=== PATIENT | female | born 1970 ===

== ENCOUNTER 2025-03-24 21:39 | Observation (INO) | payer MEDICAID, SELFPAY ==
--- NOTE | 2025-03-24 | ECG_ITS ---
Test Reason : TACHY Blood Pressure : */* mmHG Vent. Rate : 93 BPM Atrial Rate : 93 BPM P-R Int : 144 ms QRS Dur : 112 ms QT Int : 358 ms P-R-T Axes : 48 -29 76 degrees QTcB Int : 445 ms Normal sinus rhythm with sinus arrhythmia Moderate voltage criteria for LVH, may be normal variant ( R in aVL , Josue product ) Septal infarct , age undetermined Abnormal ECG No previous ECGs available Referred By: Generic ED Physician Electronically Signed By: YADIRA LIVINGSTON
--- NOTE | ~2025-03-24 | CT_ITS ---
CLINICAL HISTORY: vomiting, eval for SBO CT abdomen and pelvis with contrast Comparison: None provided Findings: Minor atelectasis at the lung bases. Small hiatal hernia. Heart size is approaching the upper limits in size. Gallbladder absent. Abdominal solid organs are otherwise unremarkable. No evidence of bowel obstruction. Moderate stool. Uterus and ovaries unremarkable. Normal appendix. Distal colonic diverticulosis without diverticulitis. Thoracolumbar posterior stabilization hardware. The left Forte pam is fractured at the T11 vertebral body level. Old left L2 and L3 fractures of the transverse processes. Osteopenia. No acute fracture. IMPRESSION: 1. No evidence of bowel obstruction. 2. Left Forte pam at T11 vertebral body level is fractured. Chronicity uncertain. 3. Additional nonacute findings as above. This document has been electronically signed by: Sumi Butcher MD on 03/25/2025 02:15:09
--- NOTE | ~2025-03-24 | XR_ITS ---
CLINICAL HISTORY: abdominal pain Radiographs of the abdomen 2 views with 1 view of the chest Comparison: CT/SR - CT ABDOMEN PELVIS W IV CON - 03/25/25 01:18 EST Findings: 4 films total. No abnormal bowel dilatation. Moderate amount of retained stool in the colon. No free air. No radiopaque foreign body. No radiopaque renal or proximal ureteral calculus. Several pelvic phleboliths. No consolidation,pleural effusion or pneumothorax. Normal heart size. No acute osseous abnormality is detected. Thoracolumbar Forte rods with discontinuity of the left-sided pam at the T11 level. Impression: 1. Nonobstructive bowel gas pattern. 2. No acute cardiopulmonary process. This document has been electronically signed by: Kailee Gonzalez DO on 03/25/2025 17:49:04
--- NOTE | ~2025-03-24 | US_ITS ---
CLINICAL HISTORY: elevated LFTs, persisent vomiting --- Additional Notes or Special Instructions: RUQ U/S right upper quadrant Comparison: None provided Findings: Cholecystectomy. Common bile duct within normal limits, 8 mm. Impression: 1. No bile duct dilatation. This document has been electronically signed by: Sumi Butcher MD on 03/25/2025 22:40:46
[2025-03-24 21:50] VITALS: BP 170/100; BP 170/88; PULSE 104; PULSE 107; RESP 20; TEMP 37.1; O2SAT 99; BMI 33.5
[2025-03-24 22:08] LABS: Hematocrit 38.4 % (37.0-47.0); Hemoglobin 12.9 g/dl (12.0-16.0); Imm Gran Abs Auto 0.07 X10*3/uL (0.00-0.03); Imm Gran Pct Auto 0.4 % (0.0-0.4); Lymphocytes Absolute Auto 2.0 X10*3/uL (1.2-4.9); MANUAL DIFF FLAG NO; Mean Corpuscular HGB Conc 33.6 g/dl (31.0-35.0); Mean Corpuscular Hemoglobin 27.5 pg (27.0-33.0); Mean Corpuscular Volume 81.9 fL (80.0-98.0); NRBC Abs Auto 0.000 X10*3/uL (0.0-0.012); NRBC Pct Auto 0.0 /100WBC (0.0-0.2); Platelet Count 494 X10*3/uL (160-400); Red Blood Count 4.69 X10*6/uL (4.20-5.50); White Blood Count 16.9 X10*3/uL (4.8-10.8)
[2025-03-24 22:25] LABS: Alanine Aminotransferase 22 U/L (0-31); Albumin Level 5.2 g/dL (3.5-5.0); Alkaline Phosphatase 142 U/L (39-117); Anion Gap 15 (12-20); Aspartate Amino Transferase 44 U/L (5-31); Blood Urea Nitrogen 9 mg/dL (9-16); Calcium 10.3 mg/dL (8.4-10.2); Carbon Dioxide 19 mmol/L (22-29); Chloride 111 mmol/L (96-108); Creatinine Clr Calc Pharmacy 87.6; Estimated Glomerular Filt Rate > 60; Lipase 16 U/L (8-78); Potassium 3.8 mmol/L (3.3-5.1); Sodium 141 mmol/L (135-145); Total Protein 9.1 g/dL (6.5-8.0)
[2025-03-24 22:31] LABS: Troponin-I High Sensitivity 23.6 ng/L (<3.5-17.0)
--- NOTE | 2025-03-24 23:17 | PC.NURSE ---
Spoke with VINAY Guadarrama Respite RN (Gisselle): In respite, [facility] 3x[facility], [facility] assisting with housing placement. Staff member states that the patient is generally compliant with care & medications, and has a lot of trauma . Takes PRN Clonidine & Hydroxyzine at baseline. Dr. Walter notified.
[2025-03-24 23:31] VITALS: PULSE 117; RESP 22; O2SAT 96
--- NOTE | 2025-03-24 23:51 | ED.ABDPAIN ---
HPI - Abdominal Pain General Chief Complaint: Abdominal Pain Stated Complaint: AB pain HTN per Urgent care possible blockage Time Seen by Provider: 03/24/25 22:52 History of Present Illness HPI narrative: 54-year-old female with a past history of hypertension and mood disorder who presents with abdominal pain for 3 days. The pain is centered around the periumbilical region, described as waxing and waning and occurring approximately every five minutes. She reports associated nausea and several episodes of vomiting. Nothing specific precipitates the pain; gentle abdominal rubbing provides mild relief. She has been unable to sleep because of the pain. She has not had a bowel movement for two days, which is unusual for her. She denies dysuria, difficulty urinating, hematuria, or vaginal bleeding. She has not been eating due to pain. Earlier today she was evaluated at an urgent care clinic and was advised to come to the ED to rule out a possible bowel obstruction. Relevant surgical history includes ovarian exploratory laparoscopy and cholecystectomy. No known medication allergies were identified during the encounter. Patient also expressed significant anxiety and panic related to her pain during the encounter. Of note, she reports questionable fish intake on Sunday. Admits that someone else who also ate this fish is sick but not to this extent. Related Data Allergies Allergy/AdvReac Type Severity Reaction Status Date / Time perphenazine (From [employer]) Allergy Unresponsiv Verified 03/24/25 21:52 e Review of Systems Review of Systems as per HPI, full review of systems performed and negative but for the above mentioned pertinent positives and negatives. [facility] Social History Social History Advance Directives: No Advance Directives Information Provided: No Do you have a plan to hurt others: No Plan Physical Exam ED Exam Exam: GENERAL: Ill-Appearing, appears uncomfortable. SKIN: Normal skin color for ethnicity, warm, dry, no rashes noted. HEENT:? Normocephalic, atraumatic, no stridor, dry mucous membranes, dentition intact, EOMI. NECK: Soft, supple, full ROM, midline structures nontender, no step-offs, no deformities, no lymphadenopathy. CHEST: Heart regular tachycardia, no murmurs, symmetric chest rise and fall. PULMONARY: Clear to auscultation bilaterally, diminished at the bases, no labored breathing, no wheezes/rhales/rhonchi. ABDOMINAL: Soft, nondistended, diffusely tender to palpation without rebound or guarding, positive bowel sounds in all quadrants. : Deferred. MUSCULOSKELETAL: Normal tone, full range of motion, no deformities, no peripheral edema. NEURO: Alert and oriented x3, CN II through XII intact, equal strength and sensation bilateral upper and lower extremities, no focal neurologic deficits.? PSYCHIATRIC: Flat affect, fluid speech, poor eye contact and hystrionic behavior. Vital Signs: Vital Signs - 24 hr 03/24/25 21:50 03/24/25 23:31 03/24/25 23:54 Temperature 98.8 F Pulse Rate 107 H 117 H 91 Respiratory Rate 20 22 H 22 H Blood Pressure 170/88 H 154/96 H Pulse Oximetry 99 96 96 Oxygen Delivery Method Room Air Room Air Room Air 03/25/25 00:09 03/25/25 00:24 03/25/25 00:54 Temperature Pulse Rate 88 90 91 Respiratory Rate 18 20 20 Blood Pressure 163/94 H 164/98 H 157/97 H Pulse Oximetry 97 96 99 Oxygen Delivery Method Room Air Room Air Room Air BMI result Body Mass Index 33.5 Medical Decision Making Medical Decision Making [facility] Narrative: This patient presents today with a chief complaint of abdominal pain and vomiting. Differential diagnosis for this patient is broad. It includes appendicitis, choledocholithiasis hernia, pancreatitis, bowel obstruction, peptic ulcer disease, pyelonephritis, vascular pathology, among many others. A broad-based workup based on history and physical examination was obtained. Patient medicated with Haldol, Benadryl, Versed, Zofran, Pepcid, Reglan, Compazine and IV fluids and continues to vomit. I have discussed the case with the hospitalist and we will plan for admission for further care and evaluation of intractable vomiting. I do suspect she is having food poisoning at this point. No evidence of bowel obstruction on her CT. Admitted in guarded condition. Differential Diagnosis Differential Diagnoses: The differential diagnosis associated with the presentation includes (as above) Admission/Observation Consideration of admission/observation: Escalation of care including admission/observation considered Consult Healthcare Provider Management of the patient was discussed with: Hospitalist Lab Data [facility] Lab Attestation statement: I reviewed the patient's lab results. 03/24/25 22:02 03/24/25 22:02 Labs: Lab Results 03/24/25 03/25/25 Range/Units 22:02 02:50 WBC 16.9 H (4.8-10.8) X10*3/uL RBC 4.69 (4.20-5.50) X10*6/uL Hgb 12.9 (12.0-16.0) g/dl Hct 38.4 (37.0-47.0) % MCV 81.9 (80.0-98.0) fL MCH 27.5 (27.0-33.0) pg MCHC 33.6 (31.0-35.0) g/dl RDW 13.0 (11.0-16.0) % Plt Count 494 H (160-400) X10*3/uL MPV 9.4 (9.4-12.3) fL Immature Gran % (Auto) 0.4 (0.0-0.4) % Neut % (Auto) 81.9 H (45-73) % Lymph % (Auto) 11.6 L (20-40) % Levy % (Auto) 5.0 (2-11) % Eos % (Auto) 0.5 (0-4) % Baso % (Auto) 0.6 (0-2) % Lymph # (Auto) 2.0 (1.2-4.9) X10*3/uL Levy # (Auto) 0.8 (0.1-1.2) X10*3/uL Eos # (Auto) 0.1 (0.0-0.4) X10*3/uL Baso # (Auto) 0.1 (0.0-0.2) X10*3/uL Abs Immat Gran (auto) 0.07 H (0.00-0.03) X10*3/uL Absolute Neuts (auto) 13.9 H (2.0-8.3) x10*3/uL Absolute Nucleated RBC 0.000 (0.0-0.012) X10*3/uL Nucleated RBC % (auto) 0.0 (0.0-0.2) /100WBC Sodium 141 (135-145) mmol/L Potassium 3.8 (3.3-5.1) mmol/L Chloride 111 H (96-108) mmol/L Carbon Dioxide 19 L (22-29) mmol/L Anion Gap 15 (12-20) BUN 9 (9-16) mg/dL Creatinine 0.80 (0.5-1.4) mg/dL Estim Creat Clear Calc 87.6 Estimated GFR > 60 Random Glucose 159 H (60-115) mg/dL Calcium 10.3 H (8.4-10.2) mg/dL Total Bilirubin 0.4 (0.0-1.0) mg/dL AST 44 H (5-31) U/L ALT 22 (0-31) U/L Alkaline Phosphatase 142 H (39-117) U/L Troponin I High Sens 23.6 H (<3.5-17.0) ng/L Total Protein 9.1 H (6.5-8.0) g/dL Albumin 5.2 H (3.5-5.0) g/dL Lipase 16 (8-78) U/L Urine Color Yellow Urine Appearance Clear Urine pH 8.5 (5.0-9.0) Ur Specific [place] >= 1.030 H (1.005-1.025) Urine Protein Trace (Neg-Trace) mg/dL Urine Glucose (UA) 100 H (Negative) mg/dL Urine Ketones Trace (Negative) mg/dL Urine Blood Small (1+) H (Negative) Urine Nitrite Negative (Negative) Ur Leukocyte Esterase Negative (Negative) Urine RBC 3-5 H (0-2) /HPF Urine WBC 0-5 (0-5) /HPF Ur Squamous Epith Cells 0-2 (0-2) /HPF Urine Bacteria None Seen (None Seen) Hyaline Casts 0-2 (0-2) /LPF Independent Interpretation I performed an independent interpretation of an: EKG Interpretation: My independent interpretation of the ECG reveals normal sinus rhythm with rate of 90, LVH, nonspecific interventricular conduction delay with a QRS of 118, no ST elevations or depressions to suggest ischemic changes, no previous for comparison Radiology Impression Discussion of test interpretation with radiology: I have reviewed the radiologist's reading. Independent Historian Clinical information obtained from an independent historian. History obtained from or confirmed by: EMS Chronic Conditions Patient?s care impacted by: Hypertension Social Determinants Patient?s care significantly limited by Social Determinants of Health including: Inadequate housing and Other Social Determinant of Health Medications Administered Generic Name Dose Route Start Last Admin Trade Name Freq PRN Reason Stop Dose Admin Lactated Ringer's 1,000 mls @ 999 mls/hr 03/25/25 05:24 03/25/25 05:31 Lr IV 03/25/25 06:24 999 mls/hr .Q1H1M ONE Administration Discontinued Medications Generic Name Dose Route Start Last Admin Trade Name Freq PRN Reason Stop Dose Admin Diphenhydramine HCl 50 mg 03/24/25 23:06 03/24/25 23:31 Diphenhydramine Hcl 50 Mg/Ml Vial IM 03/24/25 23:07 50 mg ONCE ONE Administration Famotidine 20 mg 03/25/25 04:06 03/25/25 04:19 Famotidine/Pf 20 Mg/2 Ml Vial IVPUSH 03/25/25 04:07 20 mg ONCE ONE Administration Haloperidol Lactate 5 mg 03/24/25 23:06 03/24/25 23:31 Haloperidol Lactate 5 Mg/Ml Vial IM 03/24/25 23:07 5 mg STAT STA Administration Lactated Ringer's 1,000 mls @ 999 mls/hr 03/25/25 00:23 03/25/25 02:16 Lr IV 03/25/25 01:23 Infused .Q1H1M ONE Infusion Iohexol 85 ml 03/25/25 01:21 03/25/25 01:22 Iohexol 350 Mg/Ml 100 Ml Infus..Btl IV 03/25/25 01:22 85 ml ONCE ONE Administration Metoclopramide HCl 10 mg 03/25/25 04:06 03/25/25 04:19 Metoclopramide Hcl 10 Mg/2 Ml Vial IVPUSH 03/25/25 04:07 10 mg ONCE ONE Administration Midazolam HCl 5 mg 03/24/25 23:07 03/24/25 23:31 Midazolam Hcl 5 Mg/Ml Vial IM 03/24/25 23:08 5 mg ONCE ONE Administration Ondansetron HCl 4 mg 03/25/25 00:23 03/25/25 01:16 Ondansetron Hcl 4 Mg/2 Ml Vial IVPUSH 03/25/25 00:24 4 mg ONCE ONE Administration Prochlorperazine Edisylate 10 mg 03/25/25 05:24 03/25/25 05:31 Prochlorperazine Edisylate 10 Mg/2 Ml Vial IVPUSH 03/25/25 05:25 10 mg ONCE ONE Administration Critical Care Time Critical Care Time Critical Care Time: Yes Total Critical Care Time: 40 Attestation: Time is exclusive of separately billable procedures. Time includes: direct patient care, patient reassessment, coordination of patient care, interpretation of data (laboratory data, pulse oximetry, CT imaging of the abdomen), review of patient's medical records, medical consultation and documentation of patient care. Procedures excluded from critical care time: central intravenous line placement and electrocardiography. Discharge Plan Discharge Clinical Impression: Intractable nausea and vomiting, Toxic effect of ingested food Patient Disposition: Admitted As Inpatient Print Language: Unknown
[2025-03-24 23:54] VITALS: BP 154/96; PULSE 91; RESP 22; O2SAT 96
[2025-03-25] VITALS (10 sets, daily range): BP systolic 139–190; BP diastolic 72–100; PULSE 86–99; RESP 16–20; TEMP 36.6–37.4; O2SAT 96–99; BMI 34.0
--- NOTE | 2025-03-25 00:23 | ECG_ITS ---
Test Reason : REPEAT EKG Blood Pressure : */* mmHG Vent. Rate : 90 BPM Atrial Rate : 90 BPM P-R Int : 154 ms QRS Dur : 118 ms QT Int : 376 ms P-R-T Axes : 44 -36 49 degrees QTcB Int : 459 ms Normal sinus rhythm Left axis deviation Left ventricular hypertrophy with QRS widening ( R in aVL , Josue product ) Nonspecific T wave abnormality Abnormal ECG When compared with ECG of 24-Mar-2025 22:16, Criteria for Septal infarct are no longer Present Referred By: Linnea Walter Electronically Signed By: YADIRA LIVINGSTON
[2025-03-25] MEDS: Lactated Ringers 1,000 ML 999 ML IV ×3 (01:16→21:15)
[2025-03-25] MEDS: iohexoL 350 MG/ML 100 ML INFUS..BTL 85 ML IV (01:22)
[2025-03-25 02:58] LABS: Appearance Urine Clear; Glucose Urine UA 100 mg/dL (Negative); PH 8.5 (5.0-9.0); Specific Gravity - Urine >= 1.030 (1.005-1.025); UMIC TRIGGER UACC YES
--- NOTE | 2025-03-25 04:53 | PC.NURSE ---
Patient vomited second time around 4am, given PO challenge (saltine crackers & ulises bess) around 3:30am. Medications given as ordered by Dr. Walter for ongoing nausea/vomiting. CT unremarkable. Care ongoing by this RN.
--- NOTE | 2025-03-25 05:58 | P.HPHOSP_ITS ---
History of Present Illness Date of Service: 03/25/25 Attending physician on admission: Andrew Steele Chief Complaint: vomiting Patient is a 54-year-old female with a past medical history significant for hypertension, who presented to the ED due to 3 days of periumbilical abdominal pain with associated nausea and vomiting. The patient reports that the pain is intermittent and waves and last approximately 1 minute. She comes from urgent care due to concern for small bowel obstruction. The patient has been passing gas but has not had a bowel movement. She feels that this may be related to bad fish that she ate as somebody else is also a the fish is also sick, but not as Severe. She denies any fever, chills, headache, sore throat, runny nose, cough or urinary symptoms including frequency, urgency or dysuria. Review of Systems 2 Constitutional: Constitutional: Denies body ache(s), Denies chills, Denies fatigue, Denies fever(s) and Denies headache(s) Eyes: Eyes: Denies change in vision ENT: Denies headache(s), Denies nasal congestion, Denies nasal discharge and Denies sore throat Cardiovascular: Cardiovascular: Denies chest pain, Denies rapid heart rate, Denies leg edema, Denies lightheadedness and Denies dyspnea Respiratory: Respiratory: Denies chest congestion, Denies cough, Denies dyspnea and Denies wheezing Gastrointestinal: Gastrointestinal: Reports as per HPI Genitourinary: Genitourinary: Denies difficulty voiding, Denies dysuria and Denies urinary urgency Musculoskeletal: Musculoskeletal: Denies back pain Integumentary/Breasts: Skin/Breast: Denies rash Neurologic: Denies confusion and Denies headache(s) Psychiatric: Psychiatric: Denies confusion Endocrine: Endocrine: Denies fatigue Hematologic/Lymphatic: Hematologic/Lymphatic: Denies easy bleeding Allergic/Immunologic: Allergic/Immunologic: Denies wheezing [facility] Medical History (Updated 03/25/25 @ 06:55 by Julia Jackson PA-C) Class 1 obesity HTN (hypertension) Functional capacity: independent ambulation Social History Advance Directives: No Advance Directives Information Provided: No Do you have a plan to hurt others: No Plan Meds Allergies Allergy/AdvReac Type Severity Reaction Status Date / Time perphenazine (From [employer]) Allergy Unresponsiv Verified 03/24/25 21:52 e Active Medications: Current Medications Lactated Ringer's (Lr) 1,000 mls @ 999 mls/hr IV .Q1H1M ONE Stop: 03/25/25 06:24 Last Admin: 03/25/25 05:31 Dose: 999 mls/hr Physical Exam 2 Vital Signs and Narrative: Vital Signs: Last Vital Signs Temp 98.8 F 03/24/25 21:50 Pulse 91 03/25/25 00:54 Resp 20 03/25/25 00:54 BP 157/97 H 03/25/25 00:54 Pulse Ox 99 03/25/25 00:54 O2 Del Method Room Air 03/25/25 00:54 BMI result Body Mass Index 33.5 General: AOx3, no acute distress Resp: CTA bilaterally CVS: S1, S2, RRR GI: +BS, Generalized tenderness throughout, no distention Skin: Warm, dry Neuro: Cranial nerves II-XII grossly intact bilaterally. Motor grossly intact bilaterally Extremities: No edema Psych: Appropriate affect Const: General: No confusion Orientation/consciousness: No confusion Neuro: General: No confusion Results Labs 03/24/25 22:02 03/24/25 22:02 Labs: Laboratory Results - last 24 hr 03/24/25 03/25/25 22:02 02:50 MCV 81.9 MCH 27.5 MCHC 33.6 RDW 13.0 Plt Count 494 H MPV 9.4 Immature Gran % (Auto) 0.4 Neut % (Auto) 81.9 H Lymph % (Auto) 11.6 L [place] % (Auto) 5.0 Eos % (Auto) 0.5 Baso % (Auto) 0.6 Lymph # (Auto) 2.0 [place] # (Auto) 0.8 Eos # (Auto) 0.1 Baso # (Auto) 0.1 Abs Immat Gran (auto) 0.07 H Absolute Neuts (auto) 13.9 H Absolute Nucleated RBC 0.000 Nucleated RBC % (auto) 0.0 Anion Gap 15 Estim Creat Clear Calc 87.6 Estimated GFR > 60 Random Glucose 159 H Calcium 10.3 H Total Bilirubin 0.4 AST 44 H ALT 22 Alkaline Phosphatase 142 H Troponin I High Sens 23.6 H Total Protein 9.1 H Albumin 5.2 H Lipase 16 Urine Color Yellow Urine Appearance Clear Urine pH 8.5 Ur Specific [place] >= 1.030 H Urine Protein Trace Urine Glucose (UA) 100 H Urine Ketones Trace Urine Blood Small (1+) H Urine Nitrite Negative Ur Leukocyte Esterase Negative Urine RBC 3-5 H Urine WBC 0-5 Ur Squamous Epith Cells 0-2 Urine Bacteria None Seen Hyaline Casts 0-2 Assessment and Plan (1) SIRS (systemic inflammatory response syndrome): Status: Acute (2) Intractable nausea and vomiting: Status: Acute (3) Toxic effect of ingested food: Status: Acute (4) Class 1 obesity: Status: Acute (5) Tobacco use disorder: Status: Acute Plan Patient is a 54-year-old female with a past medical history significant for hypertension, who presented to the ED due to 3 days of periumbilical abdominal pain with associated nausea and vomiting. SIRS +, intractable nausea and vomiting, possible food poisoning - IVF - GI panel - Zofran, Reglan, Benadryl - clear liquid diet - monitor CBC and BMP elevated trop - repeat trop flat - EKG non-ischemic - no chest pain HTN - continue home meds class 1 obesity - weight loss encouraged tobacco use disorder - smoking cessation encouraged - PT declines NRT med rec pending full code VTE prophy: lovenox Pt with intractable nausea and vomtiing, requiring admission for observation for IVF and IV anti-nausea meds. Quality Stroke Does the patient have a stroke diagnosis?: No VTE Prior VTE?: No VTE Risk Level:: Medical - moderate - high VTE Device Contraindication: Treatment Not Indicated VTE Drug Contraindication: N/A - Med Ordered
--- NOTE | 2025-03-25 06:13 | PC.NURSE ---
Vomited a third time this shift. Dr. Walter notified, plan to admit for ongoing vomiting. Care ongoing by this RN. Gisselle at [facility]/respite updated (see phone # in previous RN note).
--- NOTE | 2025-03-25 06:17 | PC.NURSE ---
Medication list requested, pending receipt via fax.
[2025-03-25 06:24] LABS: Hematocrit 39.0 % (37.0-47.0); Hemoglobin 13.1 g/dl (12.0-16.0); Mean Corpuscular HGB Conc 33.6 g/dl (31.0-35.0); Mean Corpuscular Hemoglobin 27.6 pg (27.0-33.0); Mean Corpuscular Volume 82.1 fL (80.0-98.0); NRBC Abs Auto 0.000 X10*3/uL (0.0-0.012); NRBC Pct Auto 0.0 /100WBC (0.0-0.2); Platelet Count 467 X10*3/uL (160-400); Red Blood Count 4.75 X10*6/uL (4.20-5.50); White Blood Count 19.3 X10*3/uL (4.8-10.8)
[2025-03-25 06:43] LABS: Anion Gap 15 (12-20); Blood Urea Nitrogen 9 mg/dL (9-16); Calcium 10.3 mg/dL (8.4-10.2); Carbon Dioxide 23 mmol/L (22-29); Chloride 106 mmol/L (96-108); Creatinine Clr Calc Pharmacy 104.6; Estimated Glomerular Filt Rate > 60; Potassium 3.6 mmol/L (3.3-5.1); Sodium 140 mmol/L (135-145)
[2025-03-25 06:45] LABS: Troponin-I High Sensitivity 24.6 ng/L (<3.5-17.0)
--- NOTE | 2025-03-25 07:45 | PC.NURSE ---
Patient experienced and episode of vomiting. Medicated per MAR for nausea + vomiting.
[2025-03-25] MEDS: Lactated Ringers 1,000 ML 100 ML IVCONT ×2 (07:57→18:01)
--- NOTE | 2025-03-25 09:23 | PHA.MEDREC ---
Pharmacy Consult ? Medication Reconciliation Pharmacy has completed the medication reconciliation. Spoke with pt to confirm medications, pt had a list of medications (last updated 03/12/25). However many of the patient's medications have not been filled recently. Pt confirmed she is stil on all these medications. Last filled in January 2025 for 30 day supply (2 months ago) Folic Acid 1mg Last filled in December 2024 for 30 day supply (3 months ago) Mirtazapine 15mg Duloxetine 60mg Last filled in November 2024 for 30 day supply (4 months ago) Losartan 50mg Amlodipine 5 mg Aspirin 81 mg
[2025-03-25] MEDS: oxyCODONE HCl Immed Release 5 MG TABLET PO (12:40)
[2025-03-25] MEDS: 0.9 % Sodium Chloride Flush 3 ML SYRINGE IVFLUSH (14:19)
--- NOTE | 2025-03-25 15:36 | PM.EVENT ---
Event Note Date of Service: 03/25/25 Event Note: Patient seen and examined at bedside this morning, patient states that she persists with nausea and vomiting, continues with IV fluids. Mentions that her abdominal pain has slightly improved. Time Spent With Patient Time: Total time managing care of this patient today ____ minutes.
[2025-03-25 17:23] LABS: Lipase 25 U/L (8-78)
--- NOTE | 2025-03-25 17:54 | PC.NURSE ---
pt arrived to unit at 1230 , pt c/o 10/10 pain , pt given oxycodone at 1240 , pt continues to c/o pain and given tramadol and benadryl at 1418 . pt drinking clear liquids , 1600 pt crying in pain , new order for IV dilaudid , pt states pain much improved from pain medicine ,pt walking around room making bed , brushing teeth in a good mood . 1740 pt thrashing around in pain again , b2b sales representative walks in room taking order for food speaking to pt - pt calm and speaking normal , GSR leaves the room and pt immediately screaming crying thrashing around the bed in pain.MD larson.
[2025-03-25 19:01] LABS: Reflex Lactate? Lactic Acid Added
[2025-03-25 20:21] LABS: ~Lactic Acid-LAB USE ONLY 3.4 mmol/L (0.5-2.0)
--- NOTE | 2025-03-25 21:02 | PM.EVENT ---
Event Note Date of Service: 03/25/25 Event Note: lactic acid 3.4, likely due to persistent vomiting. pt remains a febrile. on LR 125ml/hr. check stat BMP, CBC, blood cultures x2. added RUQ US due to elevated LFTs and persistent abd pain and vomiting. LR 1L bolus ordered. Time Spent With Patient Time: Total time managing care of this patient today ____ minutes.
[2025-03-25 21:30] LABS: Cancel Lactic Acid Canceled
[2025-03-25] MEDS: Lactated Ringers 1,000 ML 125 ML IVCONT (22:25)
[2025-03-25 22:58] LABS: MANUAL DIFF FLAG NO
[2025-03-25 23:00] LABS: Hematocrit 39.6 % (37.0-47.0); Hemoglobin 13.2 g/dl (12.0-16.0); Imm Gran Abs Auto 0.07 X10*3/uL (0.00-0.03); Imm Gran Pct Auto 0.5 % (0.0-0.4); Lymphocytes Absolute Auto 2.5 X10*3/uL (1.2-4.9); Mean Corpuscular HGB Conc 33.3 g/dl (31.0-35.0); Mean Corpuscular Hemoglobin 27.5 pg (27.0-33.0); Mean Corpuscular Volume 82.5 fL (80.0-98.0); NRBC Abs Auto 0.000 X10*3/uL (0.0-0.012); NRBC Pct Auto 0.0 /100WBC (0.0-0.2); Platelet Count 445 X10*3/uL (160-400); Red Blood Count 4.80 X10*6/uL (4.20-5.50); White Blood Count 15.4 X10*3/uL (4.8-10.8)
[2025-03-25 23:17] LABS: Alanine Aminotransferase 18 U/L (0-31); Albumin Level 4.7 g/dL (3.5-5.0); Alkaline Phosphatase 128 U/L (39-117); Anion Gap 18 (12-20); Aspartate Amino Transferase 54 U/L (5-31); Blood Urea Nitrogen 10 mg/dL (9-16); Calcium 9.8 mg/dL (8.4-10.2); Carbon Dioxide 22 mmol/L (22-29); Chloride 102 mmol/L (96-108); Creatinine Clr Calc Pharmacy 79.4; Estimated Glomerular Filt Rate > 60; Potassium 3.1 mmol/L (3.3-5.1); Sodium 139 mmol/L (135-145); Total Protein 8.3 g/dL (6.5-8.0)
[2025-03-26 03:29] VITALS: BP 121/68; PULSE 95; RESP 16; TEMP 36.7; O2SAT 96
[2025-03-26] MEDS: Lactated Ringers 1,000 ML 125 ML IVCONT ×3 (05:38→23:04)
[2025-03-26 07:54] VITALS: BP 136/90; PULSE 100; RESP 18; TEMP 37.3; O2SAT 99
[2025-03-26 08:24] LABS: Hematocrit 37.6 % (37.0-47.0); Hemoglobin 12.5 g/dl (12.0-16.0); Mean Corpuscular HGB Conc 33.2 g/dl (31.0-35.0); Mean Corpuscular Hemoglobin 27.6 pg (27.0-33.0); Mean Corpuscular Volume 83.0 fL (80.0-98.0); NRBC Abs Auto 0.000 X10*3/uL (0.0-0.012); NRBC Pct Auto 0.0 /100WBC (0.0-0.2); Platelet Count 446 X10*3/uL (160-400); Red Blood Count 4.53 X10*6/uL (4.20-5.50); White Blood Count 14.8 X10*3/uL (4.8-10.8)
[2025-03-26 08:48] LABS: Anion Gap 14 (12-20); Blood Urea Nitrogen 10 mg/dL (9-16); Calcium 9.5 mg/dL (8.4-10.2); Carbon Dioxide 23 mmol/L (22-29); Chloride 107 mmol/L (96-108); Creatinine Clr Calc Pharmacy 82.2; Estimated Glomerular Filt Rate > 60; Potassium 3.4 mmol/L (3.3-5.1); Sodium 141 mmol/L (135-145)
[2025-03-26 10:19] LABS: Reflex Lactate? Lactic Acid Added
[2025-03-26 10:25] LABS: E. coli EAEC Not Detected (Not Detect.); E. coli EPEC Not Detected (Not Detect.); E. coli ETEC Not Detected (Not Detect.); E. coli STEC Not Detected (Not Detect.); Shigella sp./EIEC Not Detected (Not Detect.)
--- NOTE | 2025-03-26 10:38 | HO.PM.IMPN ---
Subjective Subjective Date of Service: 03/26/25 Interval History: Patient seen and examined at bedside this morning, patient overnight had episode of lactic acidosis, received IV fluid bolus. At this time patient states her abdomen has greatly improved, leukocyte count decreased to 15.4, lactic acid improved as well. Review of Systems Review of Systems: Yes all other systems are reviewed and are negative Physical Exam Exam: Exam: General: AxOx3, No acute distress Head: AT/NC ENT: Moist mucous membranes Neck: supple CVS; RRR, S1 S2 normal Lungs: Clear bilateral breath sounds, no wheezes or crackles Abd: Soft, mild tender, non distended Ext: No edema and no calf tenderness MSK: moving all 4 limbs Skin: No cyanosis or edema Psych: Cooperative with exam Neurology: no focal deficit Vital Signs: Vital Signs: Last Vital Signs Temp 99.1 F 03/26/25 07:54 Pulse 100 03/26/25 07:54 Resp 18 03/26/25 07:54 BP 136/90 H 03/26/25 07:54 Pulse Ox 99 03/26/25 07:54 O2 Del Method Room Air 03/26/25 07:54 BMI result Body Mass Index 34.0 Objective Data Active Medications Acetaminophen (Acetaminophen 325 Mg Tablet) 975 mg PO Q6H PRN PRN Reason: Pain, Mild 1-3,fever,headache Amlodipine Besylate (Amlodipine Besylate 5 Mg Tablet) 5 mg PO DAILY [facility]; Protocol Last Admin: 03/26/25 07:54 Dose: 5 mg Documented By: MAHENDRA Aspirin (Aspirin 81 Mg Tab.Chew) 81 mg PO DAILY [facility] Last Admin: 03/26/25 07:55 Dose: 81 mg Documented By: MAHENDRA Atorvastatin Calcium (Atorvastatin Calcium 10 Mg Tablet) 10 mg PO BEDTIME [facility] Last Admin: 03/25/25 21:14 Dose: 10 mg Documented By: DORA Calcium Carbonate (Calcium Carbonate 750 Mg Tab.Chew) 750 mg PO Q4H PRN PRN Reason: Heartburn Last Admin: 03/25/25 21:19 Dose: 750 mg Documented By: DORA Diphenhydramine HCl (Diphenhydramine Hcl 50 Mg/Ml Vial) 25 mg IVPUSH Q6H PRN PRN Reason: Nausea and Vomiting Last Admin: 03/25/25 14:18 Dose: 25 mg Documented By: YOON Duloxetine HCl (Duloxetine Hcl 60 Mg Capsule.Dr) 60 mg PO DAILY [facility] Last Admin: 03/26/25 07:54 Dose: 60 mg Documented By: MAHENDRA Enoxaparin Sodium (Enoxaparin Sodium 40 Mg/0.4 Ml Syringe) 40 mg SUBCUT Q24H [facility] Last Admin: 03/26/25 05:39 Dose: 40 mg Documented By: DORA Folic Acid (Folic Acid 1 Mg Tablet) 1 mg PO DAILY [facility] Last Admin: 03/26/25 07:54 Dose: 1 mg Documented By: MAHENDRA Hydromorphone HCl (Hydromorphone Hcl 1 Mg/Ml Syringe) 1 mg IVPUSH Q4H PRN; Protocol PRN Reason: Pain, Severe (Pain Scale 7-10) Last Admin: 03/25/25 16:16 Dose: 1 mg Documented By: YOON Hydroxyzine HCl (Hydroxyzine Hcl 50 Mg Tablet) 50 mg PO BID [facility] Last Admin: 03/26/25 07:54 Dose: 50 mg Documented By: MAHENDRA Lactated Ringer's (Lr) 1,000 mls @ 125 mls/hr IVCONT .Q8H [facility] Last Admin: 03/26/25 05:38 Dose: 125 mls/hr Documented By: DORA Magnesium Hydroxide (Milk Of Magnesia 30 Ml Oral.Susp) 30 ml PO DAILY PRN PRN Reason: Constipation Melatonin (Melatonin 3 Mg Tablet) 6 mg PO BEDTIME PRN PRN Reason: Insomnia Metoclopramide HCl (Metoclopramide Hcl 10 Mg/2 Ml Vial) 10 mg IVPUSH Q6H PRN PRN Reason: Nausea and Vomiting Last Admin: 03/25/25 07:55 Dose: 10 mg Documented By: EMIL Mirtazapine (Mirtazapine 15 Mg Tablet) 15 mg PO BEDTIME [facility] Last Admin: 03/25/25 21:14 Dose: 15 mg Documented By: DORA Multivitamins/Vitamin C (Multivitamin Tablet) 1 tab PO DAILY [facility] Last Admin: 03/26/25 07:54 Dose: 1 tab Documented By: MAHENDRA Ondansetron HCl (Ondansetron Hcl 4 Mg/2 Ml Vial) 4 mg IVPUSH Q8H PRN PRN Reason: Nausea and Vomiting Oxycodone HCl (Oxycodone Hcl Immed Release 5 Mg Tablet) 5 mg PO Q6H PRN PRN Reason: Pain, Severe (Pain Scale 7-10) Last Admin: 03/25/25 12:40 Dose: 5 mg Documented By: YOON Pantoprazole Sodium (Pantoprazole Sodium 40 Mg/10 Ml Vial) 40 mg IVPUSH BID@0630,1630 [facility] Last Admin: 03/26/25 06:10 Dose: 40 mg Documented By: DORA Prazosin HCl (Prazosin Hcl 1 Mg Capsule) 3 mg PO BEDTIME [facility]; Protocol Last Admin: 03/25/25 21:14 Dose: 3 mg Documented By: DORA Senna/Docusate Sodium (Sennosides/Docusate Sodium Tablet) 1 tab PO DAILY PRN PRN Reason: Constipation Sodium Chloride (0.9 % Sodium Chloride Flush 3 Ml Syringe) 3 ml IVFLUSH QSHIFT [facility] Last Admin: 03/26/25 07:56 Dose: Not Given Documented By: MAHENDRA Non-Admin Reason: IV Running Tramadol HCl (Tramadol Hcl 50 Mg Tablet) 50 mg PO Q6H PRN PRN Reason: Pain, Moderate(Pain Scale 4-6) Last Admin: 03/25/25 14:17 Dose: 50 mg Documented By: YOON Labs 03/26/25 08:08 03/26/25 08:08 Labs: Laboratory Results - last 24 hr 03/25/25 03/25/25 03/25/25 16:58 19:29 22:52 MCV 82.5 MCH 27.5 MCHC 33.3 RDW 13.2 Plt Count 445 H MPV 9.1 L Immature Gran % (Auto) 0.5 H Neut % (Auto) 73.8 H Lymph % (Auto) 16.5 L [place] % (Auto) 8.8 Eos % (Auto) 0.1 Baso % (Auto) 0.3 Lymph # (Auto) 2.5 [place] # (Auto) 1.4 H Eos # (Auto) 0.0 Baso # (Auto) 0.0 Abs Immat Gran (auto) 0.07 H Absolute Neuts (auto) 11.4 H Absolute Nucleated RBC 0.000 Nucleated RBC % (auto) 0.0 Anion Gap 18 Estim Creat Clear Calc 79.4 Estimated GFR > 60 Random Glucose 124 H Lactic Acid 2.9 H* Lactic Acid F/U @ 2Hr 3.4 H* Calcium 9.8 Total Bilirubin 0.5 AST 54 H ALT 18 Alkaline Phosphatase 128 H Total Protein 8.3 H Albumin 4.7 Lipase 25 03/26/25 08:08 MCV 83.0 MCH 27.6 MCHC 33.2 RDW 13.2 Plt Count 446 H MPV 9.2 L Immature Gran % (Auto) Neut % (Auto) Lymph % (Auto) [place] % (Auto) Eos % (Auto) Baso % (Auto) Lymph # (Auto) [place] # (Auto) Eos # (Auto) Baso # (Auto) Abs Immat Gran (auto) Absolute Neuts (auto) Absolute Nucleated RBC 0.000 Nucleated RBC % (auto) 0.0 Anion Gap 14 Estim Creat Clear Calc 82.2 Estimated GFR > 60 Random Glucose 125 H Lactic Acid 2.2 H* Lactic Acid F/U @ 2Hr Calcium 9.5 Total Bilirubin AST ALT Alkaline Phosphatase Total Protein Albumin Lipase Assessment and Plan (1) HTN (hypertension): Status: Acute (2) Gastroenteritis: Status: Acute (3) SIRS (systemic inflammatory response syndrome): Status: Acute Plan 54-year-old female with a past medical history significant for hypertension, who presented to the ED due to 3 days of periumbilical abdominal pain with associated nausea and vomiting. SIRS secondary to Gastroenteritis Lactic Acidosis likely 2/2 decreased volume from N/V -GI panel ordered -Imaging reviewed -Continue with LR -continue with Nausea medication - GI consulted Constipation seen on imaging Will give bowel Regimen HTN - continue home meds class 1 obesity - weight loss encouraged tobacco use disorder - smoking cessation encouraged - PT declines NRT full code VTE prophy: lovenox Total time managing care of this patient today: 35 minutes. Quality Stroke Does the patient have a stroke diagnosis?: No VTE Prior VTE?: No VTE Risk Level:: Medical - moderate - high VTE Device Contraindication: Treatment Not Indicated VTE Drug Contraindication: N/A - Med Ordered
--- NOTE | 2025-03-26 13:22 | PM.GICN ---
History of Present Illness Data of Consult Service Date: 03/26/25 Primary Care Provider: [facility] HPI Reason for consult: abdominal pain 54-year-old female with hx of hypertension, and cholecystectomy who I am seeing for assessment for abdominal pain. Patient noted this attack for 4 days with sharp, intermittent pains in upper abdomen radiating all across abdomen, 10/10 in severity with nausea and retrosternal burning and reflux with non bloody emesis preceded by constipation. She feels much better today and pain has gone possible after she moved her bowels. she denies melena, or rectal bleeding. No exacerbating or worsening factors, no sick contacts or using illicit drugs incl THC .She denies any fever, chills, headache, sore throat, runny nose, cough or urinary symptoms including frequency, urgency or dysuria. She admits to having bouts like this on and off over the years and had a EGD/colo in the distant past which was normal per her Imaging: US RUQ without stones in CBD - Ct with fecal laoding, spinal fracture, thickened contracted stomach with small hiatal hernia LABS: nml LFT, mild AST and alk phos elevation, raised WCC, lactate and plts (likely reactive) Review of Systems Review of Systems: Constitutional : No Weight loss, No Fever, No Chills ENT/Mouth : No sore throat, No Rhinorrhea Eyes: No Swelling, No Redness Cardiovascular : No Chest Pain, No SOB, No Edema Respiratory : No Cough, No Sputum, No Wheezing Gastrointestinal : see HPI Genitourinary : NO Dysuria, No Urinary Frequency, No Hematuria, No Urgency Musculoskeletal : no joint pain, No Myalgias, No Joint Swelling Skin : No Skin Lesions, No rash Neuro : No Weakness, No Numbness, No Dizziness, No Headache Psych : No Anxiety/Panic, No Depression Heme/Lymph: No Bruising, No Lymphadenopathy Endocrine : No Polyuria, No Polydipsia All other systems reviewed and are negative. [facility] Past Medical History Medical History (Updated 03/26/25 @ 10:39 by Mike Beckwith MD) Class 1 obesity HTN (hypertension) Family History Pertinent family history: deneis FH of liver or GI disease Social History Social History Household Members: None Housing: Homeless Do you presently have visiting nurse or other home services: No Patient Tobacco Use Status: Current everyday Tobacco user Tobacco use type: Cigarette Currently Displaying Signs/Symptoms of Drug Intoxication Withdrawal: No Have you been hit, kicked, punched, or otherwise hurt by someone within the past year? If so, by whom?: No Do you feel safe in your current relationship?: No Current Relationship Is there a partner from a previous relationship who is making you feel unsafe now?: No Are you made to feel afraid or neglected: No Advance Directives: No Advance Directives Information Provided: No Do you have a plan to hurt others: No Plan Recently lost weight without trying: No Nutrition Risks: Poor intake 0-25% >4 days Patient : No : No Poor oral hygiene: No Meds Allergies Allergy/AdvReac Type Severity Reaction Status Date / Time perphenazine (From Trilafon) Allergy Unresponsiv Verified 03/24/25 21:52 e Active Medications: Current Medications Acetaminophen (Acetaminophen 325 Mg Tablet) 975 mg PO Q6H PRN PRN Reason: Pain, Mild 1-3,fever,headache Amlodipine Besylate (Amlodipine Besylate 5 Mg Tablet) 5 mg PO DAILY [facility]; Protocol Last Admin: 03/26/25 07:54 Dose: 5 mg Aspirin (Aspirin 81 Mg Tab.Chew) 81 mg PO DAILY [facility] Last Admin: 03/26/25 07:55 Dose: 81 mg Atorvastatin Calcium (Atorvastatin Calcium 10 Mg Tablet) 10 mg PO BEDTIME [facility] Last Admin: 03/25/25 21:14 Dose: 10 mg Calcium Carbonate (Calcium Carbonate 750 Mg Tab.Chew) 750 mg PO Q4H PRN PRN Reason: Heartburn Last Admin: 03/25/25 21:19 Dose: 750 mg Diphenhydramine HCl (Diphenhydramine Hcl 50 Mg/Ml Vial) 25 mg IVPUSH Q6H PRN PRN Reason: Nausea and Vomiting Last Admin: 03/25/25 14:18 Dose: 25 mg Duloxetine HCl (Duloxetine Hcl 60 Mg Capsule.Dr) 60 mg PO DAILY [facility] Last Admin: 03/26/25 07:54 Dose: 60 mg Enoxaparin Sodium (Enoxaparin Sodium 40 Mg/0.4 Ml Syringe) 40 mg SUBCUT Q24H [facility] Last Admin: 03/26/25 05:39 Dose: 40 mg Folic Acid (Folic Acid 1 Mg Tablet) 1 mg PO DAILY [facility] Last Admin: 03/26/25 07:54 Dose: 1 mg Hydromorphone HCl (Hydromorphone Hcl 1 Mg/Ml Syringe) 1 mg IVPUSH Q4H PRN; Protocol PRN Reason: Pain, Severe (Pain Scale 7-10) Last Admin: 03/25/25 16:16 Dose: 1 mg Hydroxyzine HCl (Hydroxyzine Hcl 50 Mg Tablet) 50 mg PO BID [facility] Last Admin: 03/26/25 07:54 Dose: 50 mg Lactated Ringer's (Lr) 1,000 mls @ 125 mls/hr IVCONT .Q8H [facility] Last Admin: 03/26/25 05:38 Dose: 125 mls/hr Magnesium Hydroxide (Milk Of Magnesia 30 Ml Oral.Susp) 30 ml PO DAILY PRN PRN Reason: Constipation Melatonin (Melatonin 3 Mg Tablet) 6 mg PO BEDTIME PRN PRN Reason: Insomnia Metoclopramide HCl (Metoclopramide Hcl 10 Mg/2 Ml Vial) 10 mg IVPUSH Q6H PRN PRN Reason: Nausea and Vomiting Last Admin: 03/25/25 07:55 Dose: 10 mg Mirtazapine (Mirtazapine 15 Mg Tablet) 15 mg PO BEDTIME [facility] Last Admin: 03/25/25 21:14 Dose: 15 mg Multivitamins/Vitamin C (Multivitamin Tablet) 1 tab PO DAILY [facility] Last Admin: 03/26/25 07:54 Dose: 1 tab Ondansetron HCl (Ondansetron Hcl 4 Mg/2 Ml Vial) 4 mg IVPUSH Q8H PRN PRN Reason: Nausea and Vomiting Oxycodone HCl (Oxycodone Hcl Immed Release 5 Mg Tablet) 5 mg PO Q6H PRN PRN Reason: Pain, Severe (Pain Scale 7-10) Last Admin: 03/25/25 12:40 Dose: 5 mg Pantoprazole Sodium (Pantoprazole Sodium 40 Mg/10 Ml Vial) 40 mg IVPUSH BID@0630,1630 [facility] Last Admin: 03/26/25 06:10 Dose: 40 mg Prazosin HCl (Prazosin Hcl 1 Mg Capsule) 3 mg PO BEDTIME [facility]; Protocol Last Admin: 03/25/25 21:14 Dose: 3 mg Senna/Docusate Sodium (Sennosides/Docusate Sodium Tablet) 1 tab PO DAILY PRN PRN Reason: Constipation Sodium Chloride (0.9 % Sodium Chloride Flush 3 Ml Syringe) 3 ml IVFLUSH QSHIFT [facility] Last Admin: 03/26/25 07:56 Dose: Not Given Tramadol HCl (Tramadol Hcl 50 Mg Tablet) 50 mg PO Q6H PRN PRN Reason: Pain, Moderate(Pain Scale 4-6) Last Admin: 03/25/25 14:17 Dose: 50 mg Home Medications ?Medication ?Instructions ?Recorded ?Confirmed ?Last Taken ?Type acetaminophen 325 mg tablet 650 mg PO Q4H PRN Pain 03/25/25 03/25/25 Unknown History amlodipine 5 mg tablet 5 mg PO DAILY 03/25/25 03/25/25 03/24/25 History aspirin 81 mg tablet 81 mg PO DAILY 03/25/25 03/25/25 03/24/25 History atorvastatin 10 mg tablet 10 mg PO BEDTIME 03/25/25 03/25/25 03/24/25 History cariprazine 1.5 mg capsule 1.5 mg PO DAILY 03/25/25 03/25/25 03/24/25 History (Sarah) clonidine HCl 0.1 mg tablet 0.1 mg PO BID 03/25/25 03/25/25 03/24/25 History duloxetine 60 mg capsule,delayed 60 mg PO DAILY 03/25/25 03/25/25 03/24/25 History release folic acid 1 mg tablet 1 mg PO DAILY 03/25/25 03/25/25 03/24/25 History hydroxyzine pamoate 50 mg capsule 50 mg PO BID 03/25/25 03/25/25 03/24/25 History ibuprofen 200 mg tablet 200 mg PO Q6H PRN Pain 03/25/25 03/25/25 Unknown History losartan 50 mg tablet 50 mg PO DAILY 03/25/25 03/25/25 03/24/25 History melatonin 3 mg tablet 9 mg PO DAILY 03/25/25 03/25/25 03/24/25 History mirtazapine 15 mg tablet 15 mg PO BEDTIME 03/25/25 03/25/25 03/24/25 History multivitamin 1 tab PO DAILY 03/25/25 03/25/25 03/24/25 History nicotine (polacrilex) 2 mg gum 4 mg PO Q2H PRN Nicotine Cravings 03/25/25 03/25/25 Unknown History omeprazole 40 mg capsule,delayed 40 mg PO DAILY@0630 03/25/25 03/25/25 03/24/25 History release prazosin 1 mg capsule 3 mg PO BEDTIME 03/25/25 03/25/25 03/24/25 History Physical Exam Exam: Exam: EXAM: GENERAL: The patient is well developed and nontoxic. VITAL SIGNS:see workflow HEENT: Nonicteric sclerae, PERRLA, EOMI. Oropharynx clear. Moist mucous membranes. Conjunctivae appear well perfused. No thyroid mass. CHEST: Chest wall is nontender. HEART: Regular rate and rhythm without murmurs. LUNGS: Clear to auscultation bilaterally. ABDOMEN: Soft, positive bowel sounds, nontender, no organomegaly.no flank tenderness SKIN: No rash, no excessive bruising, petechiae, or purpura. NEUROLOGIC: Cranial nerves II-XII intact without motor/sensory deficit. Psych: normal affect Vital Signs: Vital Signs: Last Vital Signs Temp 99.1 F 03/26/25 07:54 Pulse 100 03/26/25 07:54 Resp 18 03/26/25 07:54 BP 136/90 H 03/26/25 07:54 Pulse Ox 99 03/26/25 07:54 O2 Del Method Room Air 03/26/25 07:54 BMI result Body Mass Index 34.0 Results Labs 03/26/25 08:08 03/26/25 08:08 Labs: Short CBC 03/25/25 03/26/25 Range/Units 22:52 08:08 WBC 15.4 H 14.8 H (4.8-10.8) X10*3/uL Hgb 13.2 12.5 (12.0-16.0) g/dl Hct 39.6 37.6 (37.0-47.0) % Plt Count 445 H 446 H (160-400) X10*3/uL BMP 03/25/25 03/26/25 22:52 08:08 Sodium 139 141 Potassium 3.1 L 3.4 Chloride 102 107 Carbon Dioxide 22 23 BUN 10 10 Creatinine 0.89 0.86 Calcium 9.8 9.5 Liver Function 03/25/25 Range/Units 22:52 Total Bilirubin 0.5 (0.0-1.0) mg/dL AST 54 H (5-31) U/L ALT 18 (0-31) U/L Alkaline Phosphatase 128 H (39-117) U/L Albumin 4.7 (3.5-5.0) g/dL Imaging CT scan - abdomen: Attestation: I personally reviewed and interpreted this imaging study as follows: (fecal laoding, spinal fracture, thickened contracted stomach with small hiatal hernia ) Assessment and Plan (1) Intractable nausea and vomiting: Status: Acute Plan 1/ N/V with thickened stomach on imaging and constipation, improved now with minimal pain, ut has bouts on and off in the past, ? due to uncontrolled GERD, or poorly managed constipation, current attack may also have been precipitaed by soem type of viral insult PLAN: 1/ cont with fluids and advance deit as tolerated /2 - if doing well then o/p egd and colo 3/ cont with PPI and bowel reguime already given by priamry team 4/ if regresses or worsens then i/p egd, colo Procedures Date of Service Date of Service: 03/26/25
[2025-03-26 15:55] VITALS: BP 132/82; PULSE 97; RESP 15; TEMP 36.3; O2SAT 99
--- NOTE | 2025-03-26 16:05 | MHC.CM.PN ---
Tete 03/26/25 DX Intractable N/V Patient states Homeless. [facility] is assisting with housing placement. [facility] program 3x a week. She is independent with all functional mobility Per MD rounds DC planned for Sunday. GI consulted. Plan for EGD and Colonoscopy Out patient [facility] May need assist with transport home.
[2025-03-26 16:08] LABS: Resp Syncy Virus RNA Qual PCR NEGATIVE (Negative); SARS COV2 PCR INHOUSE NEGATIVE (Negative)
[2025-03-26 19:24] VITALS: BP 133/86; PULSE 83; RESP 18; TEMP 36.2; O2SAT 99
[2025-03-27 04:00] VITALS: BP 133/82; PULSE 97; RESP 18; TEMP 36.4; O2SAT 98
[2025-03-27] MEDS: oxyCODONE HCl Immed Release 5 MG TABLET PO ×2 (05:50→11:37)
[2025-03-27 07:18] VITALS: BP 138/79; PULSE 71; RESP 16; TEMP 36.4; O2SAT 99
--- NOTE | 2025-03-27 11:05 | MHC.CM.PN ---
Patient is medically cleared to ms today. She has arranged for transportation to [facility]. Her [facility] worker will provide transportation to [address] [place] [address].
[2025-03-27 11:13] VITALS: BP 163/102; PULSE 108; RESP 16; TEMP 36.2; O2SAT 99
--- NOTE | 2025-03-27 11:21 | PM.DS ---
DS: Providers Provider Date of Service: 03/27/25 Date of admission: 03/25/25 05:54 Date of discharge: 03/27/25 Primary care physician: [facility] Consults: 03/25/25 16:13 Consult to Gastroenterology Routine Consulting Provider: [facility] Reason for consultation: nausea and vomiting Has provider been notified: No DS: Diagnosis Discharge Diagnosis (1) Gastroenteritis: Status: Acute (2) Constipation: Status: Acute DS: Summary Hospital Course Hospital Course: 54-year-old female with past medical history significant for HTN, who presented to the hospital complaining of periumbilical abdominal pain that began 3 days prior to admission. Patient mentioned that she had prior episodes with EGD/colonoscopy done in distant past. In the ED CT scan with no signs of obstruction, however significant fecal material. GI consulted, suggested on EGD/colonoscopy as well as PPI bowel regime. Patient at this time states that she is feeling well, tolerating diet. Gastroenteritis, resolved GERD -GI panel negative -Imaging reviewed - GI consulted suggested on PPI and bowel regimen - EGD and colonoscopy as outpatient Constipation seen on imaging continue bowel Regimen HTN - continue home meds class 1 obesity - weight loss encouraged tobacco use disorder - smoking cessation encouraged - PT declines NRT All new and continued medications were discussed in depth with the patient, and new prescriptions were given directly to patient and/or verification of the prescriptions were sent to patient's preferred pharmacy directly. All side effects were discussed. Follow-up instructions were given. Patient voiced understanding. Patient was given the opportunity ask questions and express concerns, all of which were answered to their satisfaction. Patient was instructed to follow-up with her PCP within 3 to 10 days of discharge and head to the nearest emergency room or call 911 if symptoms worsen or new symptoms develop. This is a summary of the patient's stay; for more complete details please see chart. More than 35 minutes was spent with patient regarding workup, diagnosis and follow-up. Time Attestation Discharge Coordination Time (in mins): 35 minutes Quality: Safe Use of Opioids Does Pt have an Active Cancer Diagnosis on the Problem List?: No Quality: Stroke Does the patient have a stroke diagnosis?: No Physical Exam Exam: Exam: General: AxOx3, No acute distress Head: AT/NC ENT: Moist mucous membranes Neck: supple CVS; RRR, S1 S2 normal Lungs: Clear bilateral breath sounds, no wheezes or crackles Abd: Soft, non tender, non distended Ext: No edema and no calf tenderness MSK: moving all 4 limbs Skin: No cyanosis or edema Psych: Cooperative with exam Neurology: no focal deficit Vital Signs: Vital Signs: Last Vital Signs Temp 97.1 F 03/27/25 11:13 Pulse 108 H 03/27/25 11:13 Resp 16 03/27/25 11:13 BP 163/102 H 03/27/25 11:13 Pulse Ox 99 03/27/25 11:13 O2 Del Method Room Air 03/27/25 11:13 BMI result Body Mass Index 34.0 DS: Data Data Completed and Pending Labs on day of discharge: Laboratory Results - last 24 hr 03/26/25 03/26/25 06:00 08:08 Stl C. cayetanensis PCR Not Detected Stool Rotavirus A PCR Not Detected Stl Adenov F 40/41 PCR Not Detected Stool Astrovirus (PCR) Not Detected Stool Campylobacter PCR Not Detected Stool Cryptosporidium PCR Not Detected Stl Sh Tox Pr E STEC PCR Not Detected Stool E coli O157 PCR Not applicable Stl Enterotoxigenic E PCR Not Detected Stool EPEC (PCR) Not Detected Stool EAEC (PCR) Not Detected Stl E. histolytica PCR Not Detected Stool Giardia Lamblia PCR Not Detected Stl P. shigelloides PCR Not Detected Stool Salmonella PCR Not Detected Stool Sapovirus (PCR) Not Detected Stl Shigella/EIEC PCR Not Detected St Y.enterocolitica PCR Not Detected Stool Vibrio (PCR) Not Detected Stl Vibrio cholerae PCR Not Detected Stl Norovirus GI/GII PCR Not Detected Influenza Type A (PCR) NEGATIVE Influenza Type B (PCR) NEGATIVE RSV RNA Qual (PCR) NEGATIVE SARS-CoV-2 RNA (RT-PCR) NEGATIVE Preliminary micro results at discharge 03/26/25 08:08 Blood Culture - Preliminary Blood - Venous No growth after 24 hours. 03/26/25 08:08 Blood Culture - Preliminary Blood - Venous No growth after 24 hours. Discharge Plan Discharge Anticipated Discharge Date/Time: 03/27/25 11:30 Patient Disposition: Home, Self-Care Discharge Diagnosis: Gastroenteritis Constipation Referrals: Lsiset Allison MD [Physician, Gastroenterology] - 2 Weeks [facility] [Primary Care Provider, Primary Care] - 1 Week Discharge Medications: New sennosides-docusate sodium [Senna Plus] 8.6-50 mg Tablet 1 tab PO DAILY PRN (Reason: Constipation) Qty: 10 0RF Continued sodium,potassium,mag sulfates [Suprep Bowel Prep Kit] 17.5-3.13-1.6 gram recon soln See Rx Instructions PO .COMPLEX Qty: 354 0RF Rx Instructions: DILUTE; drink 1/2 at 6-8 pm and half at 11 PM- 1AM multivitamin Tablet 1 tab PO DAILY losartan 50 mg Tablet 50 mg PO DAILY clonidine HCl 0.1 mg tablet 0.1 mg PO BID acetaminophen 325 mg Tablet 650 mg PO Q4H PRN (Reason: Pain) atorvastatin 10 mg Tablet 10 mg PO BEDTIME nicotine (polacrilex) 2 mg gum 4 mg PO Q2H PRN (Reason: Nicotine Cravings) prazosin 1 mg Capsule 3 mg PO BEDTIME hydroxyzine pamoate 50 mg Capsule 50 mg PO BID melatonin 3 mg Tablet 9 mg PO DAILY amlodipine 5 mg Tablet 5 mg PO DAILY omeprazole 40 mg capsule,delayed release(DR/EC) 40 mg PO DAILY@0630 ibuprofen 200 mg Tablet 200 mg PO Q6H PRN (Reason: Pain) folic acid 1 mg Tablet 1 mg PO DAILY aspirin 81 mg Tablet 81 mg PO DAILY mirtazapine 15 mg tablet 15 mg PO BEDTIME duloxetine 60 mg Capsule,Delayed Release(Dr/Ec) 60 mg PO DAILY Vraylar 1.5 mg capsule 1.5 mg PO DAILY Discharge Orders: Discharge Order (Routine); Ordered 03/27/25 Ordered By: Mike Beckwith Activity on Discharge: As tolerated Stand Alone Forms: Patient Portal Discharge page Print Language: Unknown Care Plan Goals: follow up with Gastroenterology for EGD/Colonoscopy continue omeprazole and bowel regimen for at least 1 bowel movement a day Health Concerns: Constipation Plan of Treatment: continue omeprazole EGD and colonoscopy as outpatient avoid fatty meals bowel regimen Assessment: 54-year-old female with past medical history significant for HTN, who presented to the hospital complaining of periumbilical abdominal pain that began 3 days prior to admission. Patient mentioned that she had prior episodes with EGD/colonoscopy done in distant past. In the ED CT scan with no signs of obstruction, however significant fecal material. GI consulted, suggested on EGD/colonoscopy as well as PPI bowel regime. Patient Instructions: Diet for Stomach Ulcers and Gastritis (ED), Heart Healthy Diet (DC), GERD (Gastroesophageal Reflux Disease) (DC)
== END 2025-03-27 11:38 | disposition home or self-care (01) ==
LOC: HO.ED 03-25 05:54 → HO.EDOVER 03-25 05:59 → HO.S3 03-25 12:01
PROVIDERS: Admitting Provider Physician Assistant; Emergency Provider Emergency Medicine; PCP Dentist General Practice; Visit Provider Student in an Organized Health Care Education/Training Program
DX: K52.9 Noninfective gastroenteritis and colitis, unspecified (principal); E87.20 Acidosis, unspecified; K59.00 Constipation, unspecified; R00.0 Tachycardia, unspecified; R11.2 Nausea with vomiting, unspecified; K31.84 Gastroparesis; I10 Essential (primary) hypertension; R10.33 Periumbilical pain; E66.811 Obesity, class 1; F17.200 Nicotine dependence, unspecified, uncomplicated; R94.31 Abnormal electrocardiogram [ECG] [EKG]; R74.01 Elevation of levels of liver transaminase levels
CPT/HCPCS: 36415; 74022; 74177; 76705; 80048; 80053; 81001; 83605; 83690; 84484; 85025; 85027; 87040; 87507; 87637; 93005; 96361; 96372; 96374; 96375; 96376; 99221; 99285; J0737; J1171; J1200; J1308; J1630; J1650; J2250; J2405; J2470; J2765; J7120; Q9967

== ENCOUNTER → 2025-03-24 22:16 | Outpatient (BNV) | payer MEDICAID, SELFPAY | PROVIDERS: Admitting Provider Physician Assistant; Emergency Provider Emergency Medicine; PCP Dentist General Practice; Visit Provider Internal Medicine | DX: I49.9 Cardiac arrhythmia, unspecified (principal) | CPT/HCPCS: 93010 ==

== ENCOUNTER → 2025-03-25 00:23 | Outpatient (BNV) | payer MEDICAID, SELFPAY | PROVIDERS: Emergency Provider Emergency Medicine; PCP Dentist General Practice; Visit Provider Radiology Diagnostic Radiology | DX: R10.11 Right upper quadrant pain (principal); R94.5 Abnormal results of liver function studies; R11.10 Vomiting, unspecified | CPT/HCPCS: 74022; 74177; 76705 ==

== ENCOUNTER → 2025-03-25 00:23 | Outpatient (BNV) | payer MEDICAID, SELFPAY | PROVIDERS: Admitting Provider Physician Assistant; Emergency Provider Emergency Medicine; PCP Dentist General Practice; Visit Provider Internal Medicine | DX: I51.7 Cardiomegaly (principal) | CPT/HCPCS: 93010 ==

== ENCOUNTER → 2025-03-25 05:54 | Outpatient (BNV) | payer MEDICAID, SELFPAY | PROVIDERS: Admitting Provider Physician Assistant; Emergency Provider Emergency Medicine; PCP Dentist General Practice; Visit Provider Student in an Organized Health Care Education/Training Program | DX: T62.91XA Toxic effect of unspecified noxious substance eaten as food, accidental (unintentional), initial encounter (principal); R65.10 Systemic inflammatory response syndrome (SIRS) of non-infectious origin without acute organ dysfunction; K52.9 Noninfective gastroenteritis and colitis, unspecified; R11.2 Nausea with vomiting, unspecified; I10 Essential (primary) hypertension; E66.811 Obesity, class 1; F17.200 Nicotine dependence, unspecified, uncomplicated | CPT/HCPCS: 99222; 99232; 99239; 99499 ==

== ENCOUNTER → 2025-03-25 05:54 | Outpatient (BNV) | payer MEDICAID, SELFPAY | PROVIDERS: Admitting Provider Physician Assistant; Emergency Provider Emergency Medicine; PCP Dentist General Practice; Visit Provider Internal Medicine Gastroenterology | DX: R11.2 Nausea with vomiting, unspecified (principal) | CPT/HCPCS: 99223 ==